=== PATIENT | female | born 1960 | race Caucasian/White ===

== ENCOUNTER 2019-07-08 20:16 | Emergency (ER) | payer BC ==
--- NOTE | 2019-07-08 20:28 | EDM.PDOC ---
ED HPI GENERAL MEDICAL PROBLEM - General Stated Complaint: PAIN IN LOWER ABDOMEN Time Seen by Provider: 07/08/19 20:27 Source of Information: Reports: Patient History Limitations: Reports: No Limitations - History of Present Illness INITIAL COMMENTS - FREE TEXT/NARRATIVE: Patient was in the clinic today and found bright red blood and no infection. CVA tenderness. Also some pain into the left groin. Never had a kidney stone before. CAT scan will be ordered today. Also gave her Dilaudid and Flomax. I did talk to urologist. He is concerned about the patient passing the stone. He agreed with the IV fluids and the Flomax. I did give her a strainer and a cup for stone analysis if she does collect the stone. The urologist will call her in the morning and set up an appointment for her on Saturday. Zofran was given to her as well as hydrocodone. Patient may need an extraction. I did do labs and did not see any infectious process. Patient was comfortable with this plan. Onset: Today, Gradual Duration: Getting Worse Location: Reports: Abdomen, Radiates to (Left groin.) Quality: Reports: Burning, Stabbing Severity: Moderate Improves with: Reports: None Associated Symptoms: Reports: Loss of Appetite, Malaise, Nausea/Vomiting, Other (Hematuria) - Related Data Allergies Allergy/AdvReac Type Severity Reaction Status Date / Time Sulfa (Sulfonamide Allergy Rash Verified 07/08/19 20:31 Antibiotics) Home Meds: Home Meds Hydrocodone/Acetaminophen [Hydrocodon-Acetaminophen 5-325] 1 - 2 each PO Q4HR PRN #20 tablet 07/08/19 [Rx] Meloxicam 7.5 mg PO BID PRN 07/08/19 [History] Tamsulosin HCl [Flomax] 0.4 mg PO DAILY #5 cap.er.24h 07/08/19 [Rx] Past Medical History - Past Health History Medical/Surgical History: Denies Medical/Surgical History Social & Family History - Tobacco Use Smoking Status *Q: Never Smoker ED ROS GENERAL - Review of Systems Review Of Systems: Comprehensive ROS is negative, except as noted in HPI. ED EXAM, RENAL/ - Physical Exam Exam: See Below Exam Limited By: No Limitations General Appearance: Alert, Moderate Distress Respiratory/Chest: No Respiratory Distress, Lungs Clear, Normal Breath Sounds, No Accessory Muscle Use, Chest Non-Tender Cardiovascular: Normal Peripheral Pulses, Regular Rate, Rhythm, No Edema, No Gallop, No JVD, No Murmur, No Rub GI/Abdominal: Tender (Left side and into the groin.) Back Exam: CVA Tenderness (L) Course - Orders/Labs/Meds Orders: Active Orders 24 hr Category Date Time Status Abdomen Pelvis wo Cont [CT] Stat Exams 07/08/19 20:28 Taken Sodium Chloride 0.9% [Normal Saline] 500 ml Med 07/08/19 20:30 Active IV ASDIRECTED Medication Orders Sodium Chloride (Normal Saline) 500 mls @ 100 mls/hr IV ASDIRECTED FLO Last Admin: 07/08/19 22:10 Dose: 100 mls/hr Labs: Laboratory Tests 07/08/19 07/08/19 07/08/19 Range/Units 22:00 22:00 22:00 WBC 9.0 (4.0-10.0) x10^3/uL RBC 4.34 (4.00-5.50) x10^6/uL Hgb 13.6 (12.0-16.0) g/dL Hct 42.3 (33.0-47.0) % MCV 97.5 H (78.0-93.0) fL MCH 31.3 (26.0-32.0) pg MCHC 32.2 (32.0-36.0) g/dL RDW Coeff of Millie 14.2 (10.0-15.0) % Plt Count 176 (130-400) x10^3/uL Neut % (Auto) 80.6 H (50.0-80.0) % Lymph % (Auto) 9.0 L (25.0-50.0) % [place] % (Auto) 9.5 (2.0-11.0) % Eos % (Auto) 0.9 (0.0-4.0) % Baso % (Auto) 0.0 L (0.2-1.2) % Sodium 144 (136-145) mmol/L Potassium 3.8 (3.5-5.1) mmol/L Chloride 108 H (98-107) mmol/L Carbon Dioxide 25 (21-32) mmol/L Anion Gap 14.8 (10-20) mmol/L BUN 25 H (7-18) mg/dL Creatinine 1.0 (0.55-1.02) mg/dL Est Cr Clr Drug Dosing TNP Estimated GFR (MDRD) 57 Glucose 109 H (74-106) mg/dL Lactic Acid 0.9 (0.4-2.0) mmol/L Calcium 8.2 L (8.5-10.1) mg/dL Meds: Medications Generic Name Dose Route Start Last Admin Trade Name Freq PRN Reason Stop Dose Admin Sodium Chloride 500 mls @ 100 mls/hr 07/08/19 20:30 07/08/19 22:10 Normal Saline IV 100 mls/hr ASDIRECTED FLO Administration Discontinued Medications Generic Name Dose Route Start Last Admin Trade Name Freq PRN Reason Stop Dose Admin Hydrocodone Bitart/Acetaminophen 1 packet 07/08/19 22:04 07/08/19 22:35 Take Home: Acetam/Hydrocodon 325-5 Mg, 5 Pack PO 07/08/19 22:05 1 packet ONETIME ONE Administration Hydromorphone HCl 0.5 mg 07/08/19 20:31 07/08/19 21:40 Dilaudid IVPUSH 07/08/19 20:32 0.5 mg ONETIME ONE Administration Hydromorphone HCl 0.5 mg 07/08/19 21:36 07/08/19 22:15 Dilaudid IVPUSH 07/08/19 21:37 0.5 mg ONETIME ONE Administration Ondansetron HCl 1 packet 07/08/19 22:04 07/08/19 22:35 Take Home: Ondansetron Odt 4 Mg, 2 Tab Pack PO 07/08/19 22:05 1 packet ONETIME ONE Administration Ondansetron HCl 4 mg 07/08/19 22:16 07/08/19 22:33 Zofran IVPUSH 07/08/19 22:17 4 mg ONETIME ONE Administration Tamsulosin HCl 0.4 mg 07/08/19 21:58 07/08/19 22:32 Flomax PO 07/08/19 21:59 0.4 mg ONETIME ONE Administration Departure - Departure Time of Disposition: 21:59 Disposition: Home, Self-Care 01 Condition: Good Clinical Impression: Gross hematuria, Left ureteral calculus, Hydronephrosis due to obstruction of ureter - Discharge Information *PRESCRIPTION DRUG MONITORING PROGRAM REVIEWED*: Not Applicable *COPY OF PRESCRIPTION DRUG MONITORING REPORT IN PATIENT LORETO: Not Applicable Prescriptions: Hydrocodone/Acetaminophen [Hydrocodon-Acetaminophen 5-325] 1 - 2 each PO Q4HR PRN #20 tablet PRN Reason: Pain Tamsulosin HCl [Flomax] 0.4 mg PO DAILY #5 cap.er.24h Instructions: Kidney Stones, [id number] Referrals: Clara Wade PA-C [Primary Care Provider] - Forms: ED Department Discharge Additional Instructions: CT scan. Drink plenty of fluids. Urologist will call you in the morning in regards to your ureteral calculi. Strain your urine at home. Keep your stone for analysis if you do pass it. Sepsis Event Note - Focused Exam Date Exam was Performed: 07/09/19 Time Exam was Performed: 03:43 - My Orders Last 24 Hours: My Active Orders 07/08/19 20:28 Abdomen Pelvis wo Cont [CT] Stat 07/08/19 20:30 Sodium Chloride 0.9% [Normal Saline] 500 ml IV ASDIRECTED - Assessment/Plan Last 24 Hours: My Active Orders 07/08/19 20:28 Abdomen Pelvis wo Cont [CT] Stat 07/08/19 20:30 Sodium Chloride 0.9% [Normal Saline] 500 ml IV ASDIRECTED
[2019-07-08] MEDS ORDERED: Sodium Chloride 0.9% 500 ML IV SCH (20:30)
[2019-07-08] MEDS ORDERED: HYDROmorphone 1 MG/ML Syringe IVPUSH ONE ×2 (20:31→21:36)
[2019-07-08] MEDS ORDERED: Tamsulosin 0.4 MG Cap.ER PO ONE (21:58)
[2019-07-08] MEDS ORDERED: Take Home: Ondansetron 4 MG Tab.DIS, 2 Tab Pack PO ONE (22:04)
[2019-07-08] MEDS ORDERED: Take Home: Acetaminophen/HYDROcodone 325-5 MG, 5 Tab Pack PO ONE (22:04)
[2019-07-08] MEDS ORDERED: Ondansetron 4 MG/2 ML SDV IVPUSH ONE (22:16)
[2019-07-08 22:26] LABS: CHLORIDE,CL 108 mmol/L (98-107); SODIUM,NA 144 mmol/L (136-145)
[2019-07-08 22:32] LABS: ANION GAP 14.8 mmol/L (10-20)
--- NOTE | 2019-07-09 08:02 | CT ---
[id number] CT/CT Abdomen Pelvis WO IV Exam: CT Abdomen Pelvis WO IV Clinical Data: LEFT FLANK PAIN HEMATURIA COMPARISON: NO PREVIOUS SIMILAR EXAM IS AVAILABLE FINDINGS: Tiny nodular densities are seen at the lung bases This would benefit from routine follow-up A 1 cm hypodensity is seen in the splenic hilus of uncertain significance IV contrast was not used There is significant left-sided hydronephrosis The appendix is normal The right kidney is normal There are fibroid changes of the uterus. There is an 8 mm calculus in the distal left ureter on image 123, series 2. The pelvis shows no mass or adenopathy otherwise There are cholesterol gallstones The liver is unremarkable The adrenals, right kidney, pancreas, and aorta otherwise are unremarkable IMPRESSION: SIGNIFICANT LEFT-SIDED HYDRONEPHROSIS 8 MM DISTAL LEFT URETERAL CALCULUS CHOLECYSTOLITHIASIS INDETERMINATE 1 CM SPLENIC HYPODENSITY NORMAL APPENDIX REPORT PROVIDED AT TIME OF EXAM NODULES AT LUNG BASES WORTHY OF FOLLOW-UP Bari Miguel MD 07/09/19 0801 Thank you for allowing us to participate in the care of your patient.
== END 2019-07-08 22:50 | disposition home or self-care (01) ==
LOC: VM.ED 20:16
DX: N13.2 Hydronephrosis with renal and ureteral calculous obstruction (principal); R31.0 Gross hematuria; Z88.2 Allergy status to sulfonamides
CPT/HCPCS: 36415; 74176; 80048; 83605; 85025; 96374; 96375; 96376; 99284; A9270; J1170; J2405; J7040